=== PATIENT | female | born 1955 | race Caucasian/White ===

== ENCOUNTER 2017-02-13 08:13 | Outpatient (CLI) | payer OTHER ==
[2017-02-13 11:04] LABS: BASOPHILS % (AUTO) 0.5 %; EOSINOPHILS # (AUTO) 0.1 10^3/uL (0.0-0.7); EOSINOPHILS % (AUTO) 1.3 %; HCT - HEMATOCRIT 39.2 % (37.0-47.0); LYMPHOCYTES # (AUTO) 1.7 10^3/uL (1.5-3.5); LYMPHOCYTES % (AUTO) 32.6 %; MEAN CORPUSCULAR HGB CONC 33.1 g/dL (32.0-36.0); MEAN CORPUSCULAR VOLUME 87.7 fL (81.0-99.0); MEAN PLATELET VOLUME 7.3 fL (7.9-10.8); MONOCYTES # (AUTO) 0.4 10^3/uL (0.0-1.0); MONOCYTES % (AUTO) 6.9 %; NEUTROPHILS # (AUTO) 3.1 10^3/uL (1.5-6.6); NEUTROPHILS % (AUTO) 58.7 %; NUCLEATED RED BLOOD CELLS AUTO 0.1 /100WBC; RED BLOOD COUNT 4.47 10^6/uL (4.20-5.40); RED CELL DISTRIBUTION WIDTH 14.1 % (12.0-15.0); UNCORRECTED WHITE BLOOD COUNT 5.3 x10^3/uL; WHITE BLOOD COUNT 5.3 x10^3/uL (4.8-10.8)
[2017-02-13 11:21] LABS: ALBUMIN/GLOBULIN RATIO 1.5 (1.0-2.2); BILIRUBIN,TOTAL 0.6 mg/dL (0.2-1.0); BUN - BLOOD UREA NITROGEN 27 mg/dL (6-20); CALCIUM 8.8 mg/dL (8.5-10.3); CARBON DIOXIDE - CO2 27 mmol/L (21-32); CHLORIDE 106 mmol/L (101-111); CHOL/HDL RATIO 4.8 (<4.4); CHOLESTEROL 239 mg/dL; CREATININE 0.6 mg/dL (0.4-1.0); GFR - MDRD 102 (>89); GLUCOSE 109 mg/dL (70-100); HDL CHOLESTEROL 50 mg/dL; LDL/HDL RATIO 3.6 (<4.4); SODIUM 138 mmol/L (135-145); TOTAL PROTEIN 6.4 g/dL (6.7-8.2); TRIGLYCERIDES 44 mg/dL; VLDL CHOLESTEROL 9 mg/dL
== END 2017-02-13 08:14 | disposition home or self-care (01) ==
LOC: LAB.F 08:13
PROVIDERS: ATTEND Physician Assistant Medical
DX: Z00.00 Encounter for general adult medical examination without abnormal findings (principal)
CPT/HCPCS: 36415; 80053; 80061; 84443; 85025

== ENCOUNTER 2017-02-21 08:14 | Outpatient (CLI) | payer OTHER ==
[2017-02-21 11:12] LABS: BASOPHILS % (AUTO) 0.4 %; EOSINOPHILS # (AUTO) 0.1 10^3/uL (0.0-0.7); EOSINOPHILS % (AUTO) 1.8 %; HCT - HEMATOCRIT 38.1 % (37.0-47.0); HGB - HEMOGLOBIN 12.8 g/dL (12.0-16.0); LYMPHOCYTES # (AUTO) 1.6 10^3/uL (1.5-3.5); LYMPHOCYTES % (AUTO) 33.5 %; MEAN CORPUSCULAR HEMOGLOBIN 29.7 pg (27.0-31.0); MEAN CORPUSCULAR HGB CONC 33.7 g/dL (32.0-36.0); MEAN CORPUSCULAR VOLUME 88.2 fL (81.0-99.0); MEAN PLATELET VOLUME 7.2 fL (7.9-10.8); MONOCYTES # (AUTO) 0.3 10^3/uL (0.0-1.0); MONOCYTES % (AUTO) 6.8 %; NEUTROPHILS # (AUTO) 2.8 10^3/uL (1.5-6.6); NEUTROPHILS % (AUTO) 57.5 %; RED BLOOD COUNT 4.32 10^6/uL (4.20-5.40); RED CELL DISTRIBUTION WIDTH 14.2 % (12.0-15.0); UNCORRECTED WHITE BLOOD COUNT 4.8 x10^3/uL; WHITE BLOOD COUNT 4.8 x10^3/uL (4.8-10.8)
[2017-02-21 11:25] LABS: ALBUMIN/GLOBULIN RATIO 1.6 (1.0-2.2); BILIRUBIN,TOTAL 0.8 mg/dL (0.2-1.0); BUN - BLOOD UREA NITROGEN 21 mg/dL (6-20); CALCIUM 8.7 mg/dL (8.5-10.3); CARBON DIOXIDE - CO2 25 mmol/L (21-32); CHLORIDE 107 mmol/L (101-111); CHOLESTEROL 209 mg/dL; CREATININE 0.6 mg/dL (0.4-1.0); GFR - MDRD 102 (>89); GLUCOSE 104 mg/dL (70-100); HDL CHOLESTEROL 52 mg/dL; POTASSIUM 3.8 mmol/L (3.5-5.0); SODIUM 139 mmol/L (135-145); TOTAL PROTEIN 6.2 g/dL (6.7-8.2); TRIGLYCERIDES 33 mg/dL
[2017-02-21 11:49] LABS: LDL CHOLESTEROL,DIRECT 148 mg/dL
== END 2017-02-21 08:15 | disposition home or self-care (01) ==
LOC: LAB.F 08:14
PROVIDERS: ATTEND Physician Assistant Medical
DX: Z00.00 Encounter for general adult medical examination without abnormal findings (principal)
CPT/HCPCS: 36415; 80053; 80061; 84443; 85025

== ENCOUNTER 2017-08-17 08:25 | Outpatient (CLI) | payer OTHER ==
--- NOTE | 2017-08-20 17:06 | Mammography Report ---
DATE OF SERVICE: 08/17/2017 DIGITAL SCREENING MAMMOGRAM: 08/17/2017 CLINICAL INDICATION: A 61-year-old, for screening, history of bilateral reduction. COMPARISON: 06/2016, 08/2014, 02/2010. TECHNIQUE: Routine CC and MLO projections were obtained of the breasts. FINDINGS: Parenchymal tissue within the breasts is predominantly fatty replaced. There are no dominant masses, suspicious microcalcifications, or secondary signs of malignancy. In comparison to the previous studies, there are no significant changes. IMPRESSION: NO MAMMOGRAPHIC EVIDENCE OF MALIGNANCY. NO SIGNIFICANT INTERVAL CHANGES. RECOMMENDATION: Screening mammography is recommended annually. BIRADS category 1 - negative. STANDARD QUALIFYING STATEMENTS: 1. This examination was reviewed with the aid of Computed-Aided Detection (CAD). 2. A negative or benign imaging report should not delay biopsy if clinically suspicious findings are present. Consider surgical consultation if warranted. More than 5% of cancers are not identified by imaging. 3. Dense breasts may obscure an underlying neoplasm. TD: 08/20/2017 18:02
== END 2017-08-17 08:26 | disposition home or self-care (01) ==
LOC: DI.S 08:25
PROVIDERS: ATTEND Physician Assistant Medical
DX: Z12.31 Encounter for screening mammogram for malignant neoplasm of breast (principal)
CPT/HCPCS: 77067

== ENCOUNTER 2017-09-17 13:08 | Emergency (ER) | payer OTHER ==
--- NOTE | 2017-09-17 14:27 | XRAY Preliminary Report ---
Exam: XR RIBS W/PA CHEST RT IMPRESSION: Negative rib series RADIA SITE ID: [id number]
--- NOTE | 2017-09-17 14:28 | XRAY Report ---
EXAM: RIGHT RIB RADIOGRAPHY EXAM DATE: 09/17/2017 02:07 PM. CLINICAL HISTORY: Fall-pop today and severe pain. COMPARISON: None. TECHNIQUE: 1 view of the chest and 2 views of the ribs. FINDINGS: Bones: Normal. No fracture or bone lesion. Lungs: No focal opacities. No pneumothorax. No pleural effusions. Mediastinum: Heart and mediastinal contours are unremarkable. Other: None. IMPRESSION: Negative rib series RADIA Referring Provider Line: [phone] SITE ID: [id number]
[2017-09-17] MEDS ORDERED: KETOROLAC 60 MG/2 ML VIAL IM STA (15:10)
--- NOTE | 2017-09-17 15:12 | ED Physician Documentation ---
History of Present Illness - Stated complaint Stated Complaint: RIB PX - Chief complaint Chief Complaint: General - History obtained from History obtained from: Patient, Family - History of Present Illness Timing: How many days ago (4) Pain level max: 8 Pain level now: 4 Improved by: rest Worsened by: movement - Additonal information Additional information: Patient is a 61-year-old female who presents to the emergency department with right-sided chest wall pain. States that she injured this falling on the ice a few days ago, then reinjured it today when lifting up her arm to trim hedges. She states that this was at work today. Took Motrin this morning, has not taken anything else for pain. The Motrin was approximately 8 hours ago. No shortness of breath. Review of Systems Constitutional: denies: Fever, Chills Nose: denies: Rhinorrhea / runny nose, Congestion Throat: denies: Sore throat Respiratory: denies: Cough, Hemoptysis, Wheezing GI: denies: Nausea, Vomiting : denies: Dysuria Skin: denies: Rash Musculoskeletal: denies: Neck pain, Back pain Neurologic: denies: Headache PD PAST MEDICAL HISTORY - Past Medical History Past Medical History: No - Past Surgical History Past Surgical History: No - Present Medications Home Medications: Ambulatory Orders Medication Instructions Recorded Confirmed Aspirin [Adult Low Dose Aspirin EC] 81 mg PO DAILY 09/17/17 09/17/17 Hydrocodone/Acetaminophen 1 - 2 each PO Q6H PRN #14 tablet 09/17/17 [Hydrocodon-Acetaminophen 5-325] Lidocaine Patch 5% [Lidoderm Patch] 1 patch TOP DAILY PRN #10 patch 09/17/17 Meloxicam [Mobic] 7.5 mg PO BID PRN #20 tablet 09/17/17 - Allergies Allergies/Adverse Reactions: Allergies Allergy/AdvReac Type Severity Reaction Status Date / Time No Known Drug Allergies Allergy Verified 09/17/17 13:22 - Living Situation Living Situation: reports: With family Living Arrangement: reports: At home - Social History Does the pt have substance abuse?: No - Family History Family history: reports: Non contributory PD ED PE NORMAL - Vitals Vital signs reviewed: Yes - General General: Alert and oriented X 3, Well developed/nourished - HEENT HEENT: Moist mucous membranes - Neck Neck: Supple, no meningeal sign - Cardiac Cardiac: RRR, Strong equal pulses - Respiratory Respiratory: No respiratory distress, Clear bilaterally, Other (Tender to palpation over the right lower ribs, posterior axillary line. No crepitus. No visible bruising.) - Abdomen Abdomen: Soft, Non tender, Non distended - Back Back: No spinal TTP - Derm Derm: Warm and dry - Neuro Neuro: Alert and oriented X 3 - Psych Psych: Normal mood, Normal affect Results - Vitals Vitals: Vital Signs - 24 hr 09/17/17 13:18 Temperature 36.6 C Heart Rate 91 Respiratory 14 Rate Blood Pressure 148/68 H O2 Saturation 96 Oxygen O2 Source Room air - Rads (name of study) right-sided ribs with chest x-ray Radiology: Prelim report reviewed, EMP read contemporaneously, See rad report PD MEDICAL DECISION MAKING - ED course Complexity details: reviewed results, re-evaluated patient, considered differential, d/w patient, d/w family ED course: Patient is a 61-year-old female who presents to the emergency department with right rib pain. No acute fractures on x-ray. No pneumothorax or hemothorax. Will place on pain medication for home and follow-up with her doctor. Patient counseled the small fractures may be missed by chest x-ray, would continue supportive treatment either way. Patient counseled regarding signs and symptoms for which I believe and urgent re-evaluation would be necessary. Patient with good understanding of and agreement to plan and is comfortable going home at this time This document was made in part using voice recognition software. While efforts are made to proofread this document, sound alike and grammatical errors may occur. Departure - Departure Disposition: 01 Home, Self Care Clinical Impression: Rib contusion Qualifiers: Encounter type: initial encounter Laterality: right Qualified Code(s): S20.211A - Contusion of right front wall of thorax, initial encounter Condition: Good Instructions: ED Contusion Vs Minor Fx Rib Follow-Up: Patti Love PA-C [Primary Care Provider] - Within 1 week Prescriptions: Hydrocodone/Acetaminophen [Hydrocodon-Acetaminophen 5-325] 1 - 2 each PO Q6H PRN #14 tablet PRN Reason: pain Lidocaine Patch 5% [Lidoderm Patch] 1 patch TOP DAILY PRN #10 patch PRN Reason: pain Meloxicam [Mobic] 7.5 mg PO BID PRN #20 tablet PRN Reason: Pain Comments: Your xrays are normal today. There may still be a small crack that is not visible on the xray. Return if you worsen. This may continue to hurt for several days to weeks. Do not drink alcohol or drive while on narcotic pain medicine. Note that many narcotic pain relievers also contain tylenol/acetaminophen. Please ensure that your total dose of acetaminophen from all sources does not exceed 3 grams (3000mg) per day. You may constipated on this medication, take a stool softener such as "Colace" twice a day while you are on it. Also recommend a qmwl-ogk-ivqyibn laxative such as senna or MiraLAX any day that you do not have a bowel movement. If you received narcotic pain medication in the emergency department, do not drive or operate machinery for the next 24 hours.
[2017-09-17 15:36] VITALS: BP 130/78
== END 2017-09-17 15:38 | disposition home or self-care (01) ==
LOC: ED 13:08
DX: S20.211A Contusion of right front wall of thorax, initial encounter (principal); W00.0XXA Fall on same level due to ice and snow, initial encounter
CPT/HCPCS: 96372; 99283; 99284

== ENCOUNTER 2018-09-26 09:24 | Outpatient (CLI) | payer OTHER ==
[2018-09-26 18:02] LABS: BASOPHILS % (AUTO) 0.7 %; EOSINOPHILS # (AUTO) 0.1 10^3/uL (0.0-0.7); EOSINOPHILS % (AUTO) 2.2 %; HGB - HEMOGLOBIN 13.4 g/dL (12.0-16.0); LYMPHOCYTES # (AUTO) 1.6 10^3/uL (1.5-3.5); MEAN CORPUSCULAR HEMOGLOBIN 29.1 pg (27.0-31.0); MEAN CORPUSCULAR HGB CONC 32.7 g/dL (32.0-36.0); MEAN CORPUSCULAR VOLUME 89.1 fL (81.0-99.0); MEAN PLATELET VOLUME 7.1 fL (7.9-10.8); MONOCYTES # (AUTO) 0.4 10^3/uL (0.0-1.0); MONOCYTES % (AUTO) 8.2 %; NEUTROPHILS # (AUTO) 2.5 10^3/uL (1.5-6.6); NEUTROPHILS % (AUTO) 54.9 %; PLT - PLATELET COUNT 262 10^3/uL (130-450); RED BLOOD COUNT 4.59 10^6/uL (4.20-5.40); RED CELL DISTRIBUTION WIDTH 14.5 % (12.0-15.0); WHITE BLOOD COUNT 4.6 x10^3/uL (4.8-10.8)
[2018-09-26 18:19] LABS: ALBUMIN/GLOBULIN RATIO 1.7 (1.0-2.2); ALKALINE PHOSPHATASE 40 IU/L (42-121); ALT ALANINE AMINOTRANSFERASE 22 IU/L (10-60); AST ASPARTATE AMINOTRANSFERASE 18 IU/L (10-42); BILIRUBIN,TOTAL 0.9 mg/dL (0.2-1.0); BUN - BLOOD UREA NITROGEN 19 mg/dL (6-20); CALCIUM 8.8 mg/dL (8.5-10.3); CARBON DIOXIDE - CO2 27 mmol/L (21-32); CHLORIDE 104 mmol/L (101-111); CHOL/HDL RATIO 3.6 (<4.4); CHOLESTEROL 207 mg/dL; CREATININE 0.6 mg/dL (0.4-1.0); GFR - MDRD 101 (>89); GLUCOSE 107 mg/dL (70-100); HDL CHOLESTEROL 58 mg/dL; LDL CHOLESTEROL,CALCULATED 137 mg/dL; LDL/HDL RATIO 2.4 (<4.4); SODIUM 140 mmol/L (135-145); TOTAL PROTEIN 6.4 g/dL (6.7-8.2); VLDL CHOLESTEROL 12 mg/dL
[2018-09-27 12:01] LABS: HEPATITIS C ANTIBODY NON-REACTIVE (NON-REACTIVE)
== END 2018-09-26 09:25 | disposition home or self-care (01) ==
LOC: LAB.F 09:24
PROVIDERS: ATTEND Physician Assistant Medical
DX: Z00.00 Encounter for general adult medical examination without abnormal findings (principal); E78.5 Hyperlipidemia, unspecified; Z11.59 Encounter for screening for other viral diseases
CPT/HCPCS: 36415; 80053; 80061; 83721; 84443; 85025; 86803

== ENCOUNTER 2018-12-02 07:56 | Day surgery (SDC) | payer OTHER ==
[2018-12-02] MEDS ORDERED: LACTATED RINGERS 1,000 ML IV ONE (08:00)
[2018-12-02] MEDS ORDERED: fentaNYL 250 MCG/5 ML VIAL IVP ONE (08:50)
[2018-12-02] MEDS ORDERED: MIDAZOLAM 2 MG/2 ML VIAL IVP ONE (08:50)
[2018-12-02 09:48] VITALS: BP 108/61
== END 2018-12-02 07:57 | disposition home or self-care (01) ==
LOC: SDS 07:56
PROVIDERS: ATTEND Surgery
PROC: 0DBK8ZZ Excision of Ascending Colon, Via Natural or Artificial Opening Endoscopic (ICD-10-PCS; principal; 2018-12-02 09:30)
DX: Z12.11 Encounter for screening for malignant neoplasm of colon (principal); K64.8 Other hemorrhoids; K21.9 Gastro-esophageal reflux disease without esophagitis; Z87.11 Personal history of peptic ulcer disease; Z85.41 Personal history of malignant neoplasm of cervix uteri; Z90.710 Acquired absence of both cervix and uterus; Z90.79 Acquired absence of other genital organ(s); Z90.722 Acquired absence of ovaries, bilateral; Z79.82 Long term (current) use of aspirin
CPT/HCPCS: 45380; 88305; J3010; J7120

== ENCOUNTER 2019-01-13 07:44 | Outpatient (CLI) | payer OTHER ==
--- NOTE | 2019-01-13 08:23 | Mammography Report ---
Reason: SCREENING MAMMOGRAM Procedure Date: 01/13/2019 Accession Number: [id number] / [id number] Procedure: CHEIKH - Screening Mammo Dig Bilat CPT Code: FULL RESULT: EXAM: Bilateral mammography screening. DATE: 01/13/2019 8:11 AM CLINICAL HISTORY: Screening encounter. History of early menses. History of bilateral breast reduction surgery in 1995. TECHNIQUE: (B) - Bilateral CC and MLO views were obtained. COMPARISON: 08/17/2017 through 02/23/2010. PARENCHYMAL PATTERN: (F) - The breast(s) demonstrate(s) diffuse fatty replacement. FINDINGS: Postsurgical changes are redemonstrated. There are coarse typically benign left breast calcifications. There are no suspicious masses, calcifications, or areas of distortion. IMPRESSION: Benign findings. BI-RADS category 2. RECOMMENDATION: (ANNUAL) - Recommend routine annual screening mammography. BI-RADS CATEGORY: (2) - Benign Findings. STANDARD QUALIFYING STATEMENTS: 1. This examination was not reviewed with the aid of Computer-Aided Detection (CAD). 2. A negative or benign imaging report should not preclude biopsy if clinically suspicious findings are present. 3. Dense breasts may obscure an underlying neoplasm. 4. This examination was reviewed without the aid of 3D breast imaging (tomosynthesis).
--- NOTE | 2019-01-13 08:23 | Mammography Report ---
Reason: SCREENING MAMMO Procedure Date: 01/13/2019 Accession Number: [id number] / [id number] Procedure: CHEIKH - Screening Mammo w/Curt CPT Code: FULL RESULT: EXAM: Bilateral mammography screening. DATE: 01/13/2019 8:11 AM CLINICAL HISTORY: Screening encounter. History of early menses. History of bilateral breast reduction surgery in 1995. TECHNIQUE: (B) - Bilateral CC and MLO views were obtained. COMPARISON: 08/17/2017 through 02/23/2010. PARENCHYMAL PATTERN: (F) - The breast(s) demonstrate(s) diffuse fatty replacement. FINDINGS: Postsurgical changes are redemonstrated. There are coarse typically benign left breast calcifications. There are no suspicious masses, calcifications, or areas of distortion. IMPRESSION: Benign findings. BI-RADS category 2. RECOMMENDATION: (ANNUAL) - Recommend routine annual screening mammography. BI-RADS CATEGORY: (2) - Benign Findings. STANDARD QUALIFYING STATEMENTS: 1. This examination was not reviewed with the aid of Computer-Aided Detection (CAD). 2. A negative or benign imaging report should not preclude biopsy if clinically suspicious findings are present. 3. Dense breasts may obscure an underlying neoplasm. 4. This examination was reviewed without the aid of 3D breast imaging (tomosynthesis).
== END 2019-01-13 07:45 | disposition home or self-care (01) ==
LOC: DI 07:44
DX: Z12.31 Encounter for screening mammogram for malignant neoplasm of breast (principal)
CPT/HCPCS: 77063; 77067

== ENCOUNTER 2020-06-22 08:00 | Outpatient (CLI) | payer OTHER | END 2020-06-22 23:59 | disposition home or self-care (01) | LOC: LAB.R 08:00 | PROVIDERS: ATTEND Physician Assistant Medical | DX: J02.9 Acute pharyngitis, unspecified (principal); B97.89 Other viral agents as the cause of diseases classified elsewhere; Z20.828 Contact with and (suspected) exposure to other viral communicable diseases | CPT/HCPCS: 87275; 87276 ==

== ENCOUNTER 2020-08-03 13:47 | Outpatient (CLI) | payer OTHER ==
--- NOTE | 2020-08-03 14:58 | XRAY Report ---
PROCEDURE: Chest 2 View X-Ray INDICATIONS: BRONCHITIS TECHNIQUE: 2 view(s) of the chest. COMPARISON: Chest x-ray dated 09/17/2017 FINDINGS: Surgical changes and devices: None. Lungs and pleura: No pleural effusions or pneumothorax. Lungs are clear. Mediastinum: Mediastinal contours are normal. Heart size is normal. Bones and chest wall: No suspicious bony abnormalities. Soft tissues appear unremarkable. IMPRESSION: No acute process. Reviewed by: Ronnie Dumont MD on 08/03/2020 2:56 PM PST Approved by: Ronnie Dumont MD on 08/03/2020 2:56 PM PST Station ID: [id number]
--- OUTSIDE RECORDS SUMMARY | 2020-08-04 09:24 | EXTERNAL MEDICAL SUMMARY RPT | Continuity of Care Document ---
:1955 Demographics Phone Unavailable Preferred Language pat Marital Status Unknown Worship Affiliation Unknown Race Unknown Ethnic Group Unknown Author Organization [employer] Address [address] [place] [address] Phone Care Team Providers Name Role Phone KMAALA Unavailable Unavailable Young Unavailable Unavailable Problems date description facility 2020-06-22 00:00 OTH VIRAL AGENTS THE CAUSE [facility] OF DISEASES [facility] 2020-06-22 00:00 ACUTE PHARYNGITIS, UNSPECIFIED [facility] 2020-06-22 00:00:00 Unspecified viral infection [facility] [place] [facility] 2020-06-22 00:00:00 [facility] [place] [facility] 2020-06-22 00:00:00 COVID19 Testing [facility] [place] [facility] 2020-06-22 00:00:00 Influenza A & B Antigen, Rapid [facility] [place] [facility] 2020-06-22 00:00:00 Other viral agents as the cause [facility] of diseases classified elsewhere [place] R 2020-06-22 00:00:00 [facility], [facility] [place] [facility] 2020-06-22 00:00:00 [facility] [place] [facility] 2020-06-22 00:00:00 Pain in throat [facility] [place] [facility] 2020-06-22 00:00:00 Health-related behavior [facility] [place] [facility] 2020-06-22 00:00:00 [facility] [place] [facility] 2020-06-22 00:00:00 [facility] [place] [facility] 2020-06-22 00:00:00 [facility] smoker [facility] [place] [facility] 2020-06-22 00:00:00 [facility] 2020-06-22 00:00:00 [facility] 2020-06-22 00:00:00 [facility] 2020-06-22 08:00 OTH VIRAL AGENTS THE CAUSE [facility] OF DISEASES CL[facility]SD ELSWHR 2020-06-22 08:00 ACUTE PHARYNGITIS, UNSPECIFIED [facility] 2020-06-22 08:00 CONTACT W AND EXPOSURE TO OTH [facility] VIRAL COMMUNICABLE DISEASES 2020-08-03 00:00:00 [facility] 2020-08-03 00:00:00 CHEST 2 VIEW [facility] 2020-08-03 00:00:00 Acute bronchitis, unspecified [facility] Primary Care [facility] 2020-08-03 00:00:00 [facility] 2020-08-03 00:00:00 Health[facility]related [facility] 2020-08-03 00:00:00 Tobacco use and exposure [facility] Care [facility] 2020-08-03 00:00:00 Exercise [facility] 2020-08-03 00:00:00 [facility]oker [facility] 2020-08-03 00:00:00 Little interest or pleasure in [facility] doing things? [facility] 2020-08-03 00:00:00 Feeling down, depressed, or [facility] hopeless? [facility] 2020-08-03 00:00:00 Patient Health Questionnaire 2 [facility] item (PHQ2) total score [facility] 2020-08-03 00:00:00 Alcohol use [facility] 2020-08-03 00:00:00 Tobacco smoking status [facility] [place] [facility] Allergies date description facility NO KNOWN ENVIRONMENTAL ALLERGIES [facility] NO KNOWN ALLERGIES [facility] No Known Drug Allergies [facility] Medications date description facility 2020-08-03 00:00:00 null [facility] [place] [facility] 2020-08-03 00:00:00 null [facility] [place] [facility] 2020-08-03 00:00:00 METHYLPREDNISOLONE [facility] [place] [facility] 2020-08-03 00:00:00 METHYLPREDNISOLONE [facility] Prim [facility] [place] [facility] Procedures date description facility 2020-06-22 00:00:00 POC STREP TEST [facility] [place] [facility] date description facility 2020-06-22 00:00:00 [facility] [place] [facility] Results test status date ordered by attending specimen radhika e null F 2020-06-22 09:40:00 CLAR.Madison Deleon 2 16:21:00 null F 2020-06-22 09:40:00 CLAR.Madison Deleon 2 16:21:00 facility observation status value reference units lab abnor mal line range code notes [facility] F Negative Negative [facility] F Negative Negative [facility] test status date ordered by attending specimen radhika e null F 2020-06-22 09:40:00 CLAR.11A Edwige Deleon 2 16:37:00 facility observation status value reference units lab abnor mal line notes range code [facility] F NEGATIVE unknown See [facility] s eparate report - Report scanned to Patient' s EMR. Testing perform[facility] d at [facility] test status date ordered by attending specimen radhika e T unknown 2020-06-22 unknown unknown unknown 00:00:00 COVID-19_REFEREN unknown 2020-06-22 unknown unknown unkno wn CE_TEST 00:00:00 Microbial_identi unknown 2020-06-22 unknown unknown unkno wn fication_kit_rapi 00:00:00 d_strep_method Streptococcus_py unknown 2020-06-22 unknown unknown unkno wn ogenes_DNA_Presen 00:00:00 ce_in_Throat_by_N AA_with_probe_det ection _2019NCoV_COVID- unknown 2020-06-22 unknown unknown unkno wn 19_Lab_Test_Resul 00:00:00 t_Text_ facility observation status value reference units lab abnor mal line range code notes [facility] T unknown NEGATIVE unknown COVI unkn own unknown Primary Care D-19 [place] [facility] COVID-19_REF unknown NEGATIVE unknown COVI unknown unknown Primary Care ERENCE_TEST D19.R [place] [facility] EF [facility] Microbial_id unknown Neg unknown _355 unknown unknown Primary Care entification_ 4 [place] [facility] kit_rapid_str ep_method [facility] Streptococcu unknown Neg unknown _604 unknown unknown Primary Care s_pyogenes_DN 89-2 [place] [facility] A_Presence_in _Throat_by_NA A_with_probe_ detection [facility] _2019NCoV_CO unknown NEGATIVE unknown _665 unknown unknown Primary Care VID-19_Lab_Te [address] [place] [facility] [address]_Result_Tex t_ Social History date description facility 2020-06-22 00:00:00 [facility] [place] [facility] date description facility 2020-08-03 00:00:00 [facility] [place] [facility] Social History date description facility 2020-06-22 00:00:00 [facility] [place] [facility] date description facility 2020-08-03 00:00:00 [facility] [place] [facility] date description facility [id number]
== END 2020-08-03 13:48 | disposition home or self-care (01) ==
LOC: DI.WCP 13:47
PROVIDERS: ATTEND Physician Assistant Medical
DX: J20.9 Acute bronchitis, unspecified (principal)

== ENCOUNTER 2021-07-12 08:00 | Outpatient (CLI) | payer MEDICARE, OTHER ==
[2021-07-12 19:01] LABS: BILIRUBIN,URINE NEGATIVE (NEGATIVE); GLUCOSE, URINE (UA) NEGATIVE (NEGATIVE); KETONES,URINE (UA) NEGATIVE (NEGATIVE); LEUKOCYTE ESTERASE, URINE NEGATIVE (NEGATIVE); NITRITE,URINE NEGATIVE (NEGATIVE); OCCULT BLOOD,URINE TRACE-INTA (NEGATIVE); PROTEIN,URINE NEGATIVE (NEGATIVE); UROBILINOGEN,URINE 0.2 (NORMAL) E.U./dL (NORMAL)
[2021-07-12 19:08] LABS: CLARITY,URINE CLEAR (CLEAR)
[2021-07-12 19:28] LABS: BACTERIA,URINE None Seen /HPF (None Seen); SQUAMOUS EPITHELIAL CELL,UR RARE Squamous (<= Few); WBC,URINE 0-3 /HPF (0-5)
== END 2021-07-12 23:59 | disposition home or self-care (01) ==
LOC: LAB.S 08:00
PROVIDERS: ATTEND Physician Assistant Medical
DX: M54.9 Dorsalgia, unspecified (principal)
CPT/HCPCS: 81001; 87086

== ENCOUNTER 2021-08-23 08:00 | Outpatient (CLI) | payer MEDICARE ==
[2021-08-23 15:12] LABS: BASOPHILS % (AUTO) 0.6 %; EOSINOPHILS # (AUTO) 0.1 10^3/uL (0.0-0.7); EOSINOPHILS % (AUTO) 2.5 %; HCT - HEMATOCRIT 42.3 % (37.0-47.0); HGB - HEMOGLOBIN 13.8 g/dL (12.0-16.0); LYMPHOCYTES # (AUTO) 1.8 10^3/uL (1.5-3.5); LYMPHOCYTES % (AUTO) 34.8 %; MEAN CORPUSCULAR HEMOGLOBIN 29.4 pg (27.0-31.0); MEAN CORPUSCULAR HGB CONC 32.6 g/dL (32.0-36.0); MEAN CORPUSCULAR VOLUME 90.2 fL (81.0-99.0); MONOCYTES # (AUTO) 0.4 10^3/uL (0.0-1.0); MONOCYTES % (AUTO) 7.9 %; NEUTROPHILS # (AUTO) 2.8 10^3/uL (1.5-6.6); PLT - PLATELET COUNT 286 10^3/uL (130-450); RED BLOOD COUNT 4.69 10^6/uL (4.20-5.40); RED CELL DISTRIBUTION WIDTH 13.3 % (12.0-15.0); WHITE BLOOD COUNT 5.2 x10^3/uL (4.8-10.8)
[2021-08-23 15:47] LABS: ALBUMIN/GLOBULIN RATIO 1.4 (1.0-2.2); ALKALINE PHOSPHATASE 35 IU/L (42-121); ALT ALANINE AMINOTRANSFERASE 20 IU/L (10-60); AST ASPARTATE AMINOTRANSFERASE 15 IU/L (10-42); BILIRUBIN,TOTAL 0.7 mg/dL (0.2-1.0); BUN - BLOOD UREA NITROGEN 25 mg/dL (6-20); CARBON DIOXIDE - CO2 25 mmol/L (21-32); CHLORIDE 104 mmol/L (101-111); CHOL/HDL RATIO 3.9 (<4.4); CHOLESTEROL 221 mg/dL; CREATININE 0.7 mg/dL (0.4-1.0); GFR - MDRD 84 (>89); GLUCOSE 117 mg/dL (70-100); HDL CHOLESTEROL 56 mg/dL; LDL CHOLESTEROL,CALCULATED 149 mg/dL; LDL/HDL RATIO 2.7 (<4.4); POTASSIUM 4.3 mmol/L (3.5-5.0); SODIUM 137 mmol/L (135-145); TOTAL PROTEIN 6.8 g/dL (6.7-8.2); TRIGLYCERIDES 78 mg/dL; VLDL CHOLESTEROL 16 mg/dL
[2021-08-23 16:20] LABS: THYROID STIMULATING HORMONE 2.49 uIU/mL (0.34-5.60)
== END 2021-08-23 23:59 | disposition home or self-care (01) ==
LOC: LAB.S 08:00
PROVIDERS: ATTEND Physician Assistant Medical
DX: R73.9 Hyperglycemia, unspecified (principal); E78.5 Hyperlipidemia, unspecified; Z79.899 Other long term (current) drug therapy
CPT/HCPCS: 36415; 80053; 80061; 83721; 84443; 85025

== ENCOUNTER 2021-09-03 10:36 | Outpatient (CLI) | payer MEDICARE ==
--- NOTE | 2021-09-03 12:51 | XRAY Report ---
PROCEDURE: Lumbar Spine 2 View INDICATIONS: Back pain TECHNIQUE: 2 views of the lumbar spine were acquired. COMPARISON: None. FINDINGS: Bones: 5 [id number]-shy-sokumvi vertebrae are present. There is normal bony alignment. No vertebral body compression fractures. No suspicious bony lesions. Hypertrophic facet joints present lower lumbar s pine. Diffuse disc space narrowing Soft tissues: Overlying bowel gas pattern is normal. No suspicious soft tissue calcifications. Brittny gical clips noted in the pelvis IMPRESSION: Degenerative disc disease and arthropathy without fracture or malalignment. Reviewed by: Vladimir Rashid MD on 09/03/2021 11:50 AM [facility] Approved by: Vladimir Rashid MD on 09/03/2021 11:50 AM [facility] Station ID: [id number]
== END 2021-09-03 10:37 | disposition home or self-care (01) ==
LOC: DI.S 10:36
PROVIDERS: ATTEND Physician Assistant Medical
DX: M47.26 Other spondylosis with radiculopathy, lumbar region (principal); M51.16 Intervertebral disc disorders with radiculopathy, lumbar region

== ENCOUNTER 2021-09-28 07:45 | Outpatient (CLI) | payer MEDICARE ==
--- NOTE | 2021-09-30 06:41 | Mammography Report ---
BILATERAL DIGITAL SCREENING MAMMOGRAM 3D/2D: 09/28/2021 CLINICAL: Routine screening. Comparison is made to exams dated: 01/13/2019 mammogram and 08/17/2017 mammogram - [facility]. The tissue of both breasts is predominantly fatty. No significant masses, calcifications, or other findings are seen in either breast. There has been no significant interval change. IMPRESSION: NEGATIVE There is no mammographic evidence of malignancy. A 1 year screening mammogram is recommended. This exam was interpreted at Station ID: [id number]. NOTE: For mammograms, a report in lay terms will be sent to the patient. Approximately 15% of breast malignancies will not be visualized mammographically. In the management of a palpable breast mass, a negative mammogram must not discourage biopsy of a clinically suspicious lesion. Electronically Signed By: Cherri chambers/brianrad:09/28/2021 11:45:22 ACR BI-RADS Category 1: Negative 3341F PARENCHYMAL PATTERN: (F) - The breast(s) demonstrate(s) diffuse fatty replacement. BI-RADS CATEGORY: (1) - 1 RECOMMENDATION: (ANNUAL) - Recommend routine annual screening mammography. [id number] 1 year screening LATERALITY: (B)
== END 2021-09-28 07:46 | disposition home or self-care (01) ==
LOC: DI.S 07:45
DX: Z12.31 Encounter for screening mammogram for malignant neoplasm of breast (principal)

== ENCOUNTER 2022-08-28 07:04 | Outpatient (CLI) | payer MEDICARE ==
[2022-08-28 14:45] LABS: THYROID STIMULATING HORMONE 2.93 uIU/mL (0.34-5.60)
[2022-08-29 17:58] LABS: ALBUMIN 3.9 g/dL (3.2-5.5); ALBUMIN/GLOBULIN RATIO 1.5 (1.0-2.2); ALKALINE PHOSPHATASE 35 IU/L (42-121); ALT ALANINE AMINOTRANSFERASE 22 IU/L (10-60); AST ASPARTATE AMINOTRANSFERASE 17 IU/L (10-42); BILIRUBIN,TOTAL 0.9 mg/dL (0.2-1.0); BUN - BLOOD UREA NITROGEN 21 mg/dL (6-20); CHOL/HDL RATIO 4.2 (<4.4); CHOLESTEROL 221 mg/dL; CREATININE 0.7 mg/dL (0.4-1.0); GFR - MDRD 84 (>89); HDL CHOLESTEROL 53 mg/dL; LDL CHOLESTEROL,CALCULATED 149 mg/dL; LDL/HDL RATIO 2.8 (<4.4); TOTAL PROTEIN 6.5 g/dL (6.7-8.2); TRIGLYCERIDES 93 mg/dL; VLDL CHOLESTEROL 19 mg/dL
[2022-08-29 19:18] LABS: CARBON DIOXIDE - CO2 24 mmol/L (21-32); CHLORIDE 95 mmol/L (101-111); GLUCOSE 100 mg/dL (70-100); POTASSIUM 4.5 mmol/L (3.5-5.0); SODIUM 132 mmol/L (135-145)
== END 2022-08-28 07:05 | disposition home or self-care (01) ==
LOC: LAB.S 07:04
PROVIDERS: ATTEND Physician Assistant Medical
DX: E78.5 Hyperlipidemia, unspecified (principal); I10 Essential (primary) hypertension
CPT/HCPCS: 36415; 80053; 80061; 83721; 84443

== ENCOUNTER 2022-11-21 07:45 | Outpatient (CLI) | payer MEDICARE ==
--- NOTE | 2022-11-22 12:12 | Mammography Report ---
BILATERAL DIGITAL SCREENING MAMMOGRAM 3D/2D: 11/21/2022 CLINICAL: Routine screening. Comparison is made to exams dated: 09/28/2021 mammogram, 01/13/2019 mammogram, 08/17/2017 mammogram, and 07/04/2016 mammogram - [facility]. Both breasts are almost entirely fatty (category a/<25% glandular tissue). No significant masses, calcifications, or other findings are seen in either breast. There has been no significant interval change. IMPRESSION: NEGATIVE There is no mammographic evidence of malignancy. A 1 year screening mammogram is recommended. Based on the Tyrer Cuzick model (a risk assessment model) the patients lifetime risk is 4.5% and her 10 year risk is 2.4%. According to the ACR, ACS, and NCCN guidelines, an annual breast MRI exam shaun g with mammogram is recommended if the patients lifetime risk is 20% or greater. This exam was interpreted at Station ID: [id number]. NOTE: For mammograms, a report in lay terms will be sent to the patient. Approximately 15% of breast malignancies will not be visualized mammographically. In the management of a palpable breast mass, a negative mammogram must not discourage biopsy of a clinically suspicious lesion. Electronically Signed By: Cherri chambers/adeline:11/21/2022 12:04:10 letter sent: No_Letter ACR BI-RADS Category 1: Negative 3341F PARENCHYMAL PATTERN: (F) - The breast(s) demonstrate(s) diffuse fatty replacement. BI-RADS CATEGORY: (1) - 1 Mammogram [id number] 1 year screening LATERALITY: (B)
== END 2022-11-21 07:46 | disposition home or self-care (01) ==
LOC: DI.S 07:45
DX: Z12.31 Encounter for screening mammogram for malignant neoplasm of breast (principal)

== ENCOUNTER 2023-06-02 08:00 | Outpatient (CLI) | payer MEDICARE ==
--- NOTE | 2023-06-02 22:49 | XRAY Report ---
PROCEDURE: Chest 2 View X-Ray INDICATIONS: CHRONIC COUGH TECHNIQUE: 2 views of the chest were acquired. COMPARISON: 11/15/2018, 08/03/2020 FINDINGS: Surgical changes and devices: None. Lungs and pleura: No pleural effusions or pneumothorax. Lungs are clear. Mediastinum: Mediastinal contours appear normal. Heart size is normal. Bones and chest wall: No suspicious bony lesions. There is accentuated thoracic kyphosis. Age-appr opriate degenerative changes are seen. Overlying soft tissues appear unremarkable. IMPRESSION: No acute cardiopulmonary process. No leigh infiltrates are seen. Reviewed by: Phoenix Kenny MD on 06/02/2023 9:48 PM [facility] Approved by: Phoenix Kenny MD on 06/02/2023 9:48 PM [facility] Station ID: [id number]
== END 2023-06-02 23:59 | disposition home or self-care (01) ==
LOC: DI.S 08:00
PROVIDERS: ATTEND Physician Assistant
DX: R05.3 Chronic cough (principal)

== ENCOUNTER 2023-09-11 08:25 | Outpatient (CLI) | payer MEDICARE ==
[2023-09-11 14:31] LABS: BASOPHILS % (AUTO) 0.8 %; EOSINOPHILS # (AUTO) 0.2 10^3/uL (0.0-0.7); EOSINOPHILS % (AUTO) 3.6 %; HCT - HEMATOCRIT 42.2 % (37.0-47.0); HGB - HEMOGLOBIN 13.3 g/dL (12.0-16.0); LYMPHOCYTES # (AUTO) 1.8 10^3/uL (1.5-3.5); LYMPHOCYTES % (AUTO) 36.1 %; MEAN CORPUSCULAR HEMOGLOBIN 28.6 pg (27.0-31.0); MEAN CORPUSCULAR HGB CONC 31.5 g/dL (32.0-36.0); MEAN CORPUSCULAR VOLUME 90.8 fL (81.0-99.0); MEAN PLATELET VOLUME 9.1 fL (7.9-10.8); MONOCYTES # (AUTO) 0.4 10^3/uL (0.0-1.0); MONOCYTES % (AUTO) 8.7 %; NEUTROPHILS # (AUTO) 2.5 10^3/uL (1.5-6.6); NEUTROPHILS % (AUTO) 50.2 %; PLT - PLATELET COUNT 287 10^3/uL (130-450); RED BLOOD COUNT 4.65 10^6/uL (4.20-5.40); RED CELL DISTRIBUTION WIDTH 13.3 % (12.0-15.0)
[2023-09-11 15:02] LABS: ALBUMIN 4.1 g/dL (3.2-5.5); ALBUMIN/GLOBULIN RATIO 1.6 (1.0-2.2); ALKALINE PHOSPHATASE 39 IU/L (42-121); ALT ALANINE AMINOTRANSFERASE 33 IU/L (10-60); AST ASPARTATE AMINOTRANSFERASE 23 IU/L (10-42); BILIRUBIN,TOTAL 0.6 mg/dL (0.2-1.0); BUN - BLOOD UREA NITROGEN 20 mg/dL (6-20); CALCIUM 9.6 mg/dL (8.5-10.3); CARBON DIOXIDE - CO2 29 mmol/L (21-32); CHLORIDE 105 mmol/L (101-111); CHOL/HDL RATIO 3.9 (<4.4); CHOLESTEROL 208 mg/dL; CREATININE 0.8 mg/dL (0.6-1.3); GFR - MDRD 72 (>89); GLUCOSE 120 mg/dL (74-104); HDL CHOLESTEROL 53 mg/dL; LDL CHOLESTEROL,CALCULATED 131 mg/dL; LDL/HDL RATIO 2.5 (<4.4); POTASSIUM 4.3 mmol/L (3.5-4.5); SODIUM 137 mmol/L (135-145); TOTAL PROTEIN 6.6 g/dL (6.4-8.9); TRIGLYCERIDES 118 mg/dL (48-352); VLDL CHOLESTEROL 24 mg/dL
[2023-09-11 21:20] LABS: ESTIMATED AVERAGE GLUCOSE 120 mg/dL (70-100); HEMOGLOBIN A1c% 5.8 % (4.27-6.07)
== END 2023-09-11 08:26 | disposition home or self-care (01) ==
LOC: LAB.S 08:25
PROVIDERS: ATTEND Physician Assistant Medical
DX: E78.5 Hyperlipidemia, unspecified (principal); R73.9 Hyperglycemia, unspecified; I10 Essential (primary) hypertension
CPT/HCPCS: 36415; 80053; 80061; 83036; 83721; 85025